=== PATIENT | female | born 1965 | race Caucasian/White ===

== ENCOUNTER 2017-11-20 06:40 | Emergency (ER) | payer OTHER ==
[~2017-11-20] VITALS: Ht 154.9 cm; Wt 72.0 kg
[2017-11-20 06:43] VITALS: BP 120/70; PULSE 76; RESP 16; TEMP 98.1; O2SAT 98
--- NOTE | 2017-11-20 07:48 | PD ---
HPI Chief Complaint: Exposure to Blood/Body Fluids Time Seen by Provider: 07:40 Travel History International Travel<30 days: No Contact w/Intl Traveler<30days: No Traveled to known affect area: No History of Present Illness HPI 52-year-old female patient who is a employee at [employer], presents to the ER today because she was splashed with blood from a IV catheter that she was using to get IV access on the patient, she felt something splashed on her left eye, and when she wiped she saw small spots of blood. She denies any other exposure , needlestick, or any other issues. She washed her face. Modifying Factors: None Associated Signs & Symptoms: Possible mucous membrane exposure to blood Risk Factors: None PFSH Past Medical History Immunizations Current: Yes Tetanus Vaccination: < 5 Years Influenza Vaccination: Yes ?: Not Past Surgical History Hysterectomy: Yes Social History Alcohol Use: Yes (occ) Tobacco Use: No Substance Use: No Allergies-Medications (Allergen,Severity, Reaction): Coded Allergies: codeine (Verified Allergy, Severe, Nausea/Vomiting, 11/20/17) morphine (Verified Allergy, Severe, Nausea/Vomiting, 11/20/17) penicillin V (Verified Allergy, Severe, Anaphylaxis, 11/20/17) Sulfa (Sulfonamide Antibiotics) (Verified Allergy, Unknown, Anaphylaxis, ) Review of Systems Except as stated in HPI: all other systems reviewed are Neg Physical Exam Narrative GENERAL: Well-developed middle-aged female patient currently in no acute distress. Awake and oriented 3. SKIN: Focused skin assessment warm/dry. HEAD: Normocephalic. EYES: No scleral icterus. No injection or drainage. NECK: Supple, trachea midline. No JVD or lymphadenopathy. CARDIOVASCULAR: Regular rate and rhythm without murmurs, gallops, or rubs. RESPIRATORY: Breath sounds equal bilaterally. No accessory muscle use. GASTROINTESTINAL: Abdomen soft, non-tender, nondistended. MUSCULOSKELETAL: No cyanosis, or edema. BACK: Nontender without obvious deformity. No CVA tenderness. Data Data Last Documented VS Vital Signs Date Time Temp Pulse Resp B/P (MAP) Pulse Ox O2 Delivery O2 Flow Rate FiO2 11/20/17 06:43 98.1 76 16 120/70 (87) 98 Orders Orders Hepatitis Profile (11/20/17 07:41) Hiv Antibody Screen (11/20/17 07:41) MDM Medical Decision Making Medical Screen Exam Complete: Yes Emergency Medical Condition: Yes Medical Record Reviewed: Yes Differential Diagnosis Blood exposure to mucous membrane Narrative Course This is a lower risk exposure considering that she is not even sure if she had gone into her eye. She states that she thinks is mostly on her eyelash. However, at this point I would recommend testing of the patient as well as employee . And at this point I would have her follow-up closely with employee [facility]. I have talked her regarding HIV prophylaxis at this time, and after discussions of the risks versus benefits of starting therapy, patient made decision that she would prefer to wait until she finds out about the HIV and hepatitis status of the patient. She states that she has been vaccinated with hepatitis B vaccine in the past but is now nonreactive since she has started with [employer]. Possible risk of hepatitis was discussed with the patient as well and she states understanding. At this point, I would obtain blood work for her and patient and have her follow-up with employee [facility]. Diagnosis Primary Impression: Exposure to blood or body fluid Disposition: 01 DISCHARGE HOME Condition: Stable Kelly Comer MD Nov 20, 2017 07:48
[2017-11-20 08:29] LABS: AUTOMATED NEUTROPHIL # 4.7 TH/MM3 (1.8-7.7); BASOPHIL % 0.7 % (0.0-2.0); EOSINOPHIL # 0.1 TH/MM3 (0-0.4); EOSINOPHIL % 1.5 % (0.0-4.0); HEMATOCRIT 42.6 % (35.0-46.0); HEMOGLOBIN 14.7 GM/DL (11.6-15.3); LYMPH % 22.9 % (9.0-44.0); LYMPHOCYTE # 1.6 TH/MM3 (1.0-4.8); MEAN CELL VOLUME 84.7 FL (80.0-100.0); MEAN CORPUSCULAR HEMOGLOBIN 29.3 PG (27.0-34.0); MEAN CORPUSCULAR HGB CONC 34.6 % (32.0-36.0); MEAN PLATELET VOLUME 9.3 FL (7.0-11.0); MONO % 7.9 % (0.0-8.0); MONOCYTE # 0.6 TH/MM3 (0-0.9); PLATELET COUNT 203 TH/MM3 (150-450); RED BLOOD COUNT 5.03 MIL/MM3 (4.00-5.30); RED CELL DISTRIBUTION WIDTH 13.3 % (11.6-17.2)
[2017-11-20 08:40] LABS: ALBUMIN 4.2 GM/DL (3.4-5.0); AST (GOT) 18 U/L (15-37); BICARBONATE 28.4 MEQ/L (21.0-32.0); BLOOD UREA NITROGEN 13 MG/DL (7-18); CHLORIDE 106 MEQ/L (98-107); CREATININE 0.78 MG/DL (0.50-1.00); GLOMERULAR FILTRATION RATE 77 ML/MIN (>89); GLUCOSE,RANDOM 78 MG/DL (74-106); SODIUM (NA) 140 MEQ/L (136-145)
[2017-11-20 08:41] LABS: ALT (GPT) 38 U/L (10-53)
[2017-11-20 08:43] LABS: ALKALINE PHOSPHATASE 70 U/L (45-117); TOTAL BILIRUBIN ADULT 1.3 MG/DL (0.2-1.0); TOTAL PROTEIN 7.5 GM/DL (6.4-8.2)
== END 2017-11-20 10:10 | disposition home or self-care (01) ==
LOC: NEPC 06:40
DX: Z77.21 Contact with and (suspected) exposure to potentially hazardous body fluids (principal); Z88.5 Allergy status to narcotic agent; Z88.0 Allergy status to penicillin; Z88.2 Allergy status to sulfonamides
CPT/HCPCS: 80053; 82150; 85025; 99283